=== PATIENT | male | born 1990 | race African-American/Black ===

== ENCOUNTER 2020-12-06 09:58 | Emergency (ER) | payer BC, OTHER ==
[2020-12-06 10:32] VITALS: BP 130/86; PULSE 113; TEMP 103; BMI 26.2
[2020-12-06] MEDS ORDERED: ACETAMINOPHEN 500 MG TABLET (FP) PO ONE (10:44)
[2020-12-06] MEDS ORDERED: ACETAMINOPHEN 500 MG TABLET (FP) ONE (12:06)
== END 2020-12-06 13:24 | disposition home or self-care (01) ==
LOC: JER 09:58
DX: B34.9 Viral infection, unspecified (principal); J06.9 Acute upper respiratory infection, unspecified; Z11.52 Encounter for screening for COVID-19
CPT/HCPCS: 71046-TC-FY; 87426; 87804; 99284-25